=== PATIENT | male | born 1985 | race African-American/Black ===

== ENCOUNTER 2018-09-25 09:08 | Emergency (ER) | payer SELFPAY ==
[~2018-09-25] VITALS: Ht 182.9 cm; Wt 104.3 kg
--- NOTE | 2018-09-25 09:30 | NUR ---
ED Nurse Note: pt walked in due to skin rash on the right foot, pt stated he had that for more than 3 months now and was taking antibiotic, po meds and topical cream, the rash on the left foot healed, pt complains of 8/10 pain. sen by kim. blood drawn and was sent to lab. will continue to monitor
[2018-09-25] MEDS ORDERED: Acetaminophen 500mg (ES) tab ORAL ONE (09:45)
[2018-09-25] MEDS ORDERED: Bacitracin Oint UD TOPIC ONE (09:45)
[2018-09-25 09:46] LABS: BASOPHILS % (AUTO) 0.8 % (0.0-2.0); EOSINOPHILS % (AUTO) 3.5 % (0.0-3.0); HEMATOCRIT 44.9 % (42.0-52.0); HEMOGLOBIN 15.1 G/DL (14.2-18.0); MEAN CORPUSCULAR VOLUME 85 FL (80-99); MONOCYTES % (AUTO) 9.4 % (1.0-10.0); NEUTROPHILS % (AUTO) 59.3 % (45.0-75.0); PLATELET COUNT 330 K/UL (150-450); RED BLOOD COUNT 5.27 M/UL (4.70-6.10); RED CELL DISTRIBUTION WIDTH 12.5 % (11.6-14.8)
[2018-09-25 09:58] LABS: ANION GAP 8 mmol/L (5-15); BLOOD UREA NITROGEN 16 mg/dL (7-18); CALCIUM 8.5 MG/DL (8.5-10.1); CARBON DIOXIDE 27 MMOL/L (21-32); CHLORIDE 103 MMOL/L (98-107); CREATININE 1.2 MG/DL (0.55-1.30); POTASSIUM 3.5 MMOL/L (3.5-5.1); SODIUM 138 MMOL/L (136-145)
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
[2018-09-25 10:03] LABS: ALANINE AMINOTRANSFERASE 23 U/L (12-78); ALBUMIN 3.5 G/DL (3.4-5.0); ALBUMIN/GLOBULIN RATIO 0.7 (1.0-2.7); ALKALINE PHOSPHATASE 88 U/L (46-116); ASPARTATE AMINO TRANSFERASE 28 U/L (15-37); BILIRUBIN,TOTAL 0.4 MG/DL (0.2-1.0)
[2018-09-25] MEDS ORDERED: BACITRACIN15 GM TOPIC (10:47)
[2018-09-25] MEDS ORDERED: IBUPROFEN600 MG ORAL (10:47)
[2018-09-25] MEDS ORDERED: TINACTIN 1%1 APPLIC TOPIC (10:47)
[2018-09-25] MEDS ORDERED: CLOTRIMAZOLE15 GM TOPIC (10:47)
[2018-09-25] MEDS ORDERED: TERBINAFINE HC250 MG PO (10:47)
[2018-09-25 10:55] VITALS: BP 138/98
--- NOTE | 2018-09-25 10:55 | NUR ---
ER DISCHARGE NOTE: Patient is cleared to be discharged per ERMD, pt is aox4, on room air, with stable vital signs. pt was given dc and prescription instructions, pt was able to verbalize understanding, pt id band removed without complications. pt is able to ambulate with steady gait. pt took all belongings.
== END 2018-09-25 10:55 | disposition home or self-care (01) ==
LOC: EMR 10:05
DX: B35.3 Tinea pedis (principal); B35.2 Tinea manuum; B20 Human immunodeficiency virus [HIV] disease; F12.90 Cannabis use, unspecified, uncomplicated
CPT/HCPCS: 36415; 80053; 85025; 99283

== ENCOUNTER 2019-03-10 01:30 | Emergency (ER) | payer SELFPAY ==
[~2019-03-10] VITALS: Ht 182.9 cm; Wt 106.6 kg
[~2019-03-10 01:30] MED LIST: BACITRACIN15 GM TOPIC; CLOTRIMAZOLE15 GM TOPIC; IBUPROFEN600 MG ORAL; TERBINAFINE HC250 MG PO; TINACTIN 1%1 APPLIC TOPIC
[2019-03-10 01:54] VITALS: BP 155/93
--- NOTE | 2019-03-10 01:55 | NUR ---
ED Nurse Note: Patient walked in to ER in order to be checked for STDs. AAO x4, VSS at this time.
--- NOTE | 2019-03-10 02:14 | Emergency Room Report ---
History of Present Illness General Chief Complaint: Male Urogenital Problems Source: Patient Present Illness [facility] Disclaimer: Please note that this report is being documented using DRAGON technology. This can lead to erroneous entry secondary to incorrect interpretation by the dictating instrument. HPI: 33-year-old male presents for evaluation of genital lesion. He first noticed a tender 11 days ago after unprotected sexual intercourse with multiple sexual partners. He is in a heterosexual relationship. He noticed a painless ulceration over the glans that was nontender and nondraining. After which she noted some swelling and bumps over the shaft of the penis and sought medical evaluation at a clinic. He states that he had STD testing which returned negative though cannot remember exactly what he was tested for. He does believe his HIV was negative. He states he received an intramuscular injection , pills in the emergency department and then discharged on a medication that starts with a "V" presumably valacyclovir. He has completed this treatment course. He returns as he was initially improving over the past few days after receiving treatment however he believes the ulceration is now getting worse again. He denies drainage, vesicles, lymph node engorgement/tenderness. He denies tenderness in the testicles, penile discharge, dysuria, hematuria or systemic symptoms such as fever, chills, nausea, vomiting, body aches or other changes in his health. PMH: Denies PSH: Denies Allergies: Denies Social Hx: Reports social alcohol use and tobacco use Allergies: Coded Allergies: No Known Allergies (Unverified , 09/25/18) Nursing Documentation-PMH Past Medical History: No Stated History Review of Systems All Other Systems: negative except mentioned in HPI Physical Exam Vital Signs Date Time Temp Pulse Resp B/P (MAP) Pulse Ox O2 Delivery O2 Flow Rate FiO2 03/10/19 01:37 98.2 98 18 155/93 (113) 98 Room Air General: Awake and alert, no acute distress HEENT: NC/AT. EOMI. Resp: Normal work of breathing Abd: Nontender, nondistended, no rebound. : Circumcised male, shallow nontender ulcer over the glans. No surrounding erythema or drainage. No inguinal lymphadenopathy. Testicles are in anatomic position, no edema, nontender, positive cremasteric reflexes. No blood or discharge at the urethral meatus. No vesicles appreciated. MSK: Normal tone and bulk. Moving all extremities. No obvious deformity. Neuro: Awake and alert. Mentating appropriately Medical Decision Making Diagnostic Impression: Primary Impression: Genital lesion, male ER Course 33-year-old male presents for evaluation of genital ulcer. It appears that the patient was treated at outpatient facility proximal [facility] 10 days ago for presumably GC/chlamydia/herpes infection though is unclear whether or not he was tested and treated for syphilis. We will treat him with intramuscular penicillin and he can follow-up with his PMD for reevaluation. The patient has no new symptoms simply stated that he was originally improving and now his symptoms seem to have persisted. No constitutional symptoms and stated that his HIV test was negative at previous testing. Patient be discharged home with outpatient follow-up after receiving penicillin. Discussed reasons to return to the emergency department. He understands and agrees with this treatment plan. Last Vital Signs Date Time Temp Pulse Resp B/P (MAP) Pulse Ox O2 Delivery O2 Flow Rate FiO2 03/10/19 01:54 98.2 18 155/93 98 Room Air 03/10/19 01:37 98 Disposition: HOME, SELF-CARE Condition: Stable Referrals: NOT CHOSEN IPA/,REFERRING (PCP) Farhad Broderick MD Mar 10, 2019 02:14
[2019-03-10] MEDS ORDERED: Bicillin LA 1.2MMU/2ML SYR IM ONE (02:15)
[2019-03-10 02:36] VITALS: BP 155/93
--- NOTE | 2019-03-10 02:37 | NUR ---
ED Nurse Note: Pt cleared by health care Provider for discharge. DC instructions/prescription was given and explained to pt and verbalized understanding of teachings. All medical deviecs such as ID band removed. Pt is AAO x4, ambulatory and left with all personal belongings.
== END 2019-03-10 02:29 | disposition home or self-care (01) ==
LOC: EMR 01:51
DX: N50.9 Disorder of male genital organs, unspecified (principal)
CPT/HCPCS: 96372; 99283; J0570; J0561